=== PATIENT | female | born 1990 | race Caucasian/White ===

== ENCOUNTER 2018-02-11 12:15 | Emergency (ER) | payer MEDICAID, SELFPAY ==
[2018-02-11 12:20] VITALS: BP 108/58; PULSE 69; RESP 16; TEMP 36.5; O2SAT 100
--- NOTE | 2018-02-11 12:35 | W.ED.GENAD ---
Discharge Plan Disposition Patient Disposition: HOME Condition: Good Discharge Details Chief Complaint: RespSymp Clinical Impression: Cough Primary Care Provider: NONE,NONE ED Provider: Rigo Sanders Home Meds and New Rx's Prescriptions: New azithromycin 500 mg tablet See Label Instructions .ROUTE .COMPLEX Qty: 6 RF: 0 Discharge Instructions Instructions: Acute Cough (ED) Discharge Data Discharge Physician: Rigo Sanders Medical Decision Making 27 yo female who denies chronic medical problems, who is a smoker, who comes in with cc of cough for 3 months. Denies fevers or recent travel. She doesn't have a pcp so came here. She appears well on exam and is speaking in full sentences with clear lungs, no pedal edema or jvd and denies any chest pain. I suspect smoker's cough but could be early cap vs bronchitis, will treat with azithromycin and advised she should get set up with a pcp given she is at risk for developing asthma vs copd given her smoking, so placed on the f/u list for this. Return precautions given Differential Diagnosis pna, post nasal drip, smokers cough, bronchitis HPI General Mode of arrival: ambulatory. Date/Time Provider Initiated Documentation: 02/11/18 12:19. Limitations to Documentation: no limitations. Information obtained by: patient. History of Present Illness 27 year old F presents to the emergency department with the chief complaint of cough, described as moderate, with intensity rated at 4. Patient started experiencing this month(s) (3) and it has been constant. No relieving factors improve symptom(s), No exacerbating factors reported . Patient notes no other symptoms.. Patient did receive the following treatments prior to arrival, none Related Data Home Medications Medication Instructions Recorded Confirmed azithromycin See Label Instructions .ROUTE 02/11/18 .COMPLEX #6 tab Previous Rx's Medication Instructions Recorded azithromycin See Label Instructions .ROUTE 02/11/18 .COMPLEX #6 tab Allergies Allergy/AdvReac Type Severity Reaction Status Date / Time No Known Allergies Allergy Unverified 02/11/18 12:24 General Stated Complaint: RespSymp ALEX: 4 Review of Systems Review of Systems All systems reviewed & are unremarkable except as noted in HPI and below Constitutional Denies chills, Denies fever(s) and Denies weakness Eyes Denies loss of vision ENT Denies change in voice Cardiovascular Denies chest pain and Denies dyspnea Respiratory Denies dyspnea Gastrointestinal Denies abdominal pain, Denies nausea and Denies vomiting Genitourinary Denies dysuria Musculoskeletal Denies joint swelling Integumentary/Breasts Denies rash Neurologic Denies loss of vision and Denies weakness Psychiatric Denies depression Endocrine Denies cold intolerance and Denies heat intolerance Allergic/Immunologic Reports urticaria PFSH Social History Smoking/Tobacco Use Status: Current every day Exam Const General: no acute distress Orientation: alert HENMT Head: normal to inspection Ears: external ears normal General nose exam: external nose normal Mouth: moist mucous membranes Eyes General: appearance normal, both eyes and all related structures Neck Neck: normal visual inspection Resp Effort & Inspection: normal respiratory effort and able to speak in complete sentences Cardio Rate: regular rate Skin General skin exam: no rashes or lesions noted Neuro General: alert and oriented x3 Extrem General: normal to inspection Psych Mental Status: mental status grossly normal Course Vital Signs Temperature 36.5 C 02/11/18 12:20 Pulse 69 02/11/18 12:20 Respiratory Rate 16 02/11/18 12:20 Blood Pressure 108/58 L 02/11/18 12:20 Pulse Oximetry 100 02/11/18 12:20 Temperature 36.5 C 02/11/18 12:20 Pulse 69 02/11/18 12:20 Respiratory Rate 16 02/11/18 12:20 Respiratory Effort Non-Labored 02/11/18 12:25 Respiratory Depth Normal 02/11/18 12:25 Blood Pressure 108/58 L 02/11/18 12:20 Blood Pressure Position Sitting 02/11/18 12:20 Pulse Oximetry 100 02/11/18 12:20 Oxygen Delivery Method Room Air 02/11/18 12:20 Oxygen Flow Rate 0 02/11/18 12:20 Pain Level 5 02/11/18 12:20
--- NOTE | 2018-02-11 12:38 | ED.GENADUL_ITS ---
Discharge Plan Disposition Patient Disposition: HOME Condition: Good Discharge Details Chief Complaint: RespSymp Clinical Impression: Cough Primary Care Provider: NONE,NONE ED Provider: Rigo Sanders Home Meds and New Rx's Prescriptions: New azithromycin 500 mg tablet See Label Instructions .ROUTE .COMPLEX Qty: 6 RF: 0 Discharge Instructions Instructions: Acute Cough (ED) Discharge Data Discharge Physician: Rigo Sanders Medical Decision Making 27 yo female who denies chronic medical problems, who is a smoker, who comes in with cc of cough for 3 months. Denies fevers or recent travel. She doesn't have a pcp so came here. She appears well on exam and is speaking in full sentences with clear lungs, no pedal edema or jvd and denies any chest pain. I suspect smoker's cough but could be early cap vs bronchitis, will treat with azithromycin and advised she should get set up with a pcp given she is at risk for developing asthma vs copd given her smoking, so placed on the f/u list for this. Return precautions given Differential Diagnosis pna, post nasal drip, smokers cough, bronchitis HPI General Mode of arrival: ambulatory . Date/Time Provider Initiated Documentation: 02/11/18 12:19 . Limitations to Documentation: no limitations . Information obtained by: patient . History of Present Illness 27 year old F presents to the emergency department with the chief complaint of cough, described as moderate, with intensity rated at 4. Patient started experiencing this month(s) (3) and it has been constant. No relieving factors improve symptom(s), No exacerbating factors reported . Patient notes no other symptoms.. Patient did receive the following treatments prior to arrival, none Related Data Home Medications Medication Instructions Recorded Confirmed azithromycin See Label Instructions .ROUTE 02/11/18 .COMPLEX #6 tab Previous Rx's Medication Instructions Recorded azithromycin See Label Instructions .ROUTE 02/11/18 .COMPLEX #6 tab Allergies Allergy/AdvReac Type Severity Reaction Status Date / Time No Known Allergies Allergy Unverified 02/11/18 12:24 General Stated Complaint: RespSymp ALEX: 4 Review of Systems Review of Systems All systems reviewed & are unremarkable except as noted in HPI and below Constitutional Denies chills, Denies fever(s) and Denies weakness Eyes Denies loss of vision ENT Denies change in voice Cardiovascular Denies chest pain and Denies dyspnea Respiratory Denies dyspnea Gastrointestinal Denies abdominal pain, Denies nausea and Denies vomiting Genitourinary Denies dysuria Musculoskeletal Denies joint swelling Integumentary/Breasts Denies rash Neurologic Denies loss of vision and Denies weakness Psychiatric Denies depression Endocrine Denies cold intolerance and Denies heat intolerance Allergic/Immunologic Reports urticaria PFSH Social History Smoking/Tobacco Use Status: Current every day Exam Const General: no acute distress Orientation: alert HENMT Head: normal to inspection Ears: external ears normal General nose exam: external nose normal Mouth: moist mucous membranes Eyes General: appearance normal, both eyes and all related structures Neck Neck: normal visual inspection Resp Effort & Inspection: normal respiratory effort and able to speak in complete sentences Cardio Rate: regular rate Skin General skin exam: no rashes or lesions noted Neuro General: alert and oriented x3 Extrem General: normal to inspection Psych Mental Status: mental status grossly normal Course Vital Signs Temperature 36.5 C 02/11/18 12:20 Pulse 69 02/11/18 12:20 Respiratory Rate 16 02/11/18 12:20 Blood Pressure 108/58 L 02/11/18 12:20 Pulse Oximetry 100 02/11/18 12:20 Temperature 36.5 C 02/11/18 12:20 Pulse 69 02/11/18 12:20 Respiratory Rate 16 02/11/18 12:20 Respiratory Effort Non-Labored 02/11/18 12:25 Respiratory Depth Normal 02/11/18 12:25 Blood Pressure 108/58 L 02/11/18 12:20 Blood Pressure Position Sitting 02/11/18 12:20 Pulse Oximetry 100 02/11/18 12:20 Oxygen Delivery Method Room Air 02/11/18 12:20 Oxygen Flow Rate 0 02/11/18 12:20 Pain Level 5 02/11/18 12:20
--- NOTE | 2018-02-14 11:16 | PDOC.ERCMPRO ---
Care Management Progress Note 02/14-Eva does not need an ED f/u appt, she needs to establish primary care. Dr. Rosa senior coldfusion developer. Referral faxed to Dr. Rosa's office this am.
--- NOTE | 2018-02-14 11:17 | CMPROGNOTE_ITS ---
Care Management Progress Note 02/14-Eva does not need an ED f/u appt, she needs to establish primary care. Dr. Rosa supervisor [employer]. Referral faxed to Dr. Rosa's office this am.
== END 2018-02-11 12:45 | disposition home or self-care (01) ==
PROVIDERS: Emergency Provider Emergency Medicine
DX: R05 Cough (principal); F17.210 Nicotine dependence, cigarettes, uncomplicated
CPT/HCPCS: 99283

== ENCOUNTER 2020-08-21 02:44 | Outpatient (CLI) | payer MEDICAID, SELFPAY ==
[2020-08-22 11:53] LABS: COVID-19 RT-PCR UVMMC Result Negative (Negative)
== END 2020-08-21 02:45 | disposition home or self-care (01) ==
LOC: LBO 02:44
PROVIDERS: Visit Provider Family Medicine
DX: Z20.822 Contact with and (suspected) exposure to COVID-19 (principal)
CPT/HCPCS: U0003